=== PATIENT | female | born 2000 | race Asian ===

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

== ENCOUNTER 2023-05-05 08:18 | Inpatient (IN) | payer OTHER ==
[2023-05-05] MEDS ORDERED: ELECTROLYTE-148 SOLN 1,000 ML IV SCH (10:30)
[2023-05-05 11:26] LABS: BASO % 0.3 % (0-2.0); EOS % 0.9 % (0-4.5); HEMATOCRIT 31.2 % (32.4-45.2); HEMOGLOBIN 10.5 GM/dL (10.7-15.3); LYMPH % 28.5 % (8-40); MCH 28.5 pg (25.7-33.7); MCHC 33.6 g/dl (32.0-36.0); MEAN CELL VOLUME 84.7 fl (80-96); MEAN PLT VOLUME 7.7 fl (7.5-11.1); MONO % 5.2 % (3.8-10.2); NEUT % 65.1 % (42.8-82.8); PLATELET COUNT 232 10^3/uL (134-434); RBC 3.69 M/mm3 (3.60-5.2); RDW 15.5 % (11.6-15.6); WHITE BLOOD COUNT 6.8 K/mm3 (4.0-10.0)
[2023-05-05 11:33] LABS: INR 1.07 (0.83-1.09); PROTHROMBIN TIME (PATIENT) 12.4 SEC (9.7-13.0)
[2023-05-05 11:36] LABS: ACTIVATED PTT 25.4 SECONDS (25.2-36.5)
[2023-05-05 11:51] LABS: POTASSIUM 4.1 mmol/L (3.5-5.1)
[2023-05-05 11:52] LABS: CALCIUM 8.1 mg/dL (8.5-10.1)
[2023-05-05 11:53] LABS: BLOOD UREA NITROGEN 10.4 mg/dL (7-18)
[2023-05-05 11:56] LABS: CREATININE 0.6 mg/dL (0.55-1.3)
[2023-05-05] MEDS ORDERED: OXYTOCIN 20 UNITS in 0.9% NS 20 UNIT/1,000 ML INFUS.BAG IV ONE ×2 (12:09→14:57)
[2023-05-05 12:49] LABS: HIV INTERPRETATION NEGATIVE (NEGATIVE)
[2023-05-05] MEDS ORDERED: BENZOCAINE 20% 57 GM BOTTLE TP PRN (12:57)
[2023-05-05] MEDS ORDERED: BENZOCAINE 28 GM HEMORRHOIDAL OINTMENT TP PRN (12:57)
[2023-05-05] MEDS ORDERED: WITCH HAZEL 50% (TUCKS) 40 PAD/JAR PAD TP PRN (12:57)
[2023-05-05] MEDS ORDERED: BISACODYL 10 MG SUPP.RECT RC PRN (12:57)
[2023-05-05] MEDS ORDERED: ACETAMINOPHEN 325 MG TABLET (FP) PO PRN ×2 (12:57→19:00)
[2023-05-05] MEDS ORDERED: ACETAMINOPHEN INJECTION 100 ML IVPB ONE (12:57)
[2023-05-05] MEDS ORDERED: ACETAMINOPHEN 1000 MG/100 ML BAG IVPB ONE (12:59)
[2023-05-05] MEDS ORDERED: OXYTOCIN 20 UNITS in 0.9% NS 20 UNIT/1,000 ML INFUS.BAG IV SCH (13:00)
[2023-05-05 13:31] VITALS: BMI 29.2
[2023-05-05 13:45] LABS: COCAINE, UR NEGATIVE (NEGATIVE); METHADONE, UR NEGATIVE (NEGATIVE); URINE BENZODIAZEPINES NEGATIVE (NEGATIVE)
[2023-05-05 13:46] LABS: PHENCYCLIDINE,URINE NEGATIVE (NEGATIVE); URINE AMPHETAMINES NEGATIVE (NEGATIVE); URINE BARBITURATES NEGATIVE (NEGATIVE)
[2023-05-05 13:49] LABS: OPIATES, URI NEGATIVE (NEGATIVE)
[2023-05-05] MEDS ORDERED: IBUPROFEN 600 MG TABLET (FP) PO ONE (14:13)
[2023-05-05] MEDS: IBUPROFEN 600 MG TABLET (FP) PO PRN ×2 (14:25→20:27)
[2023-05-05 21:25] VITALS: RESP 18
[2023-05-06] MEDS: IBUPROFEN 600 MG TABLET (FP) PO PRN ×3 (02:13→14:10)
[2023-05-06 08:45] LABS: BASO % 0.2 % (0-2.0); EOS % 1.3 % (0-4.5); HEMATOCRIT 30.5 % (32.4-45.2); HEMOGLOBIN 10.8 GM/dL (10.7-15.3); LYMPH % 28.5 % (8-40); MCH 29.7 pg (25.7-33.7); MCHC 35.3 g/dl (32.0-36.0); MEAN CELL VOLUME 83.9 fl (80-96); MEAN PLT VOLUME 7.8 fl (7.5-11.1); MONO % 4.7 % (3.8-10.2); NEUT % 65.3 % (42.8-82.8); PLATELET COUNT 211 10^3/uL (134-434); RBC 3.64 M/mm3 (3.60-5.2); RDW 15.5 % (11.6-15.6); WHITE BLOOD COUNT 10.2 K/mm3 (4.0-10.0)
[2023-05-06] MEDS ORDERED: FLU VACCINE (FLULAVAL) PF 60 MCG/0.5 ML SYRINGE 2023-2024 IM ONE (10:00)
[2023-05-06] MEDS ORDERED: DIPHTH,PERTUSS(ACELL),TET 0.5 ML DISP.SYRIN IM ONE (10:00)
[2023-05-06] MEDS ORDERED: SENNOSIDES/DOCUSATE COMBO (SENNA PLUS) TABLET (UD) PO PRN (22:00)
[2023-05-07] MEDS: IBUPROFEN 600 MG TABLET (FP) PO PRN (01:09)
[2023-05-07 09:33] VITALS: BP 119/75; PULSE 91; TEMP 98.1
== END 2023-05-07 11:05 | disposition home or self-care (01) | DRG 560 ==
LOC: JDEL 08:18 → JLDR 10:00 → J3W 15:05
PROVIDERS: ADMIT Student in an Organized Health Care Education/Training Program; ATTEND Student in an Organized Health Care Education/Training Program
PROC: 10E0XZZ Delivery of Products of Conception, External Approach (ICD-10-PCS; principal; 2023-05-05)
PROC: 0W8NXZZ Division of Female Perineum, External Approach (ICD-10-PCS; 2023-05-05)
PROC: 0KQM0ZZ Repair Perineum Muscle, Open Approach (ICD-10-PCS; 2023-05-05)
DX: O70.1 Second degree perineal laceration during delivery (principal); Z3A.39 39 weeks gestation of pregnancy; Z37.0 Single live birth
CPT/HCPCS: 36415; 80048; 80307; 85025; 85610; 85730; 86780; 86850; 86900; 86901; 87389; 90686; 90715; G0008